=== PATIENT | male | born 1990 | race Two or more races ===

== ENCOUNTER 2018-11-23 10:10 | Emergency (ER) | payer OTHER ==
[~2018-11-23] VITALS: Ht 172.7 cm; Wt 81.6 kg
[2018-11-23 10:10] VITALS: BP 120/67
== END 2018-11-23 11:22 | disposition home or self-care (01) ==
LOC: ER 10:24
DX: J02.9 Acute pharyngitis, unspecified (principal); R51 Headache; R19.7 Diarrhea, unspecified; R50.9 Fever, unspecified
CPT/HCPCS: 99283; A4606